=== PATIENT | male | born 1945 | race Caucasian/White ===

== ENCOUNTER → 2025-02-05 | Day surgery (SDC) | payer MEDICARE, OTHER ==
--- NOTE | 2025-01-29 14:21 | ELECTROCARDIOGRAPH REPORT ---
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 Donnell Lyles Measurements Intervals [place] Rate: 69 P: 0 MI: 0 QRS: -56 QRSD: 105 T: 74 QT: 431 QTc: 462 Interpretive Statements Atrial flutter or sinus rhythm with Baseline Artifact Left axis deviation Electronically Signed On 01-31-2025 11:59:[address] Donnell Lyles Please click the below link to view image of tracing.
[2025-01-29 14:25] LABS: MEAN PLATELET VOLUME 7.9 FL (7.4-10.4); PRE OP HEMATOCRIT 45.4 % (42.0-52.0); PRE OP HEMOGLOBIN 15.3 g/dL (14.0-17.9); PRE OP PLATELET COUNT 225 X10'3 (140-440); PRE OP WHITE BLOOD COUNT 7.8 10'3 (4.8-10.8); RED CELL DISTRIBUTION WIDTH 13.7 % (11.5-14.5)
[2025-01-29 14:53] LABS: CREATININE 1.30 MG/DL (0.60-1.10); PRE OP ANION GAP 6 (8-16); PRE OP AST 22 U/L (10-37); PRE OP BILIRUB, TOTAL 0.8 MG/DL (0.0-1.0); PRE OP GLUCOSE 98 MG/DL (70-104); PRE OP POTASSIUM 4.1 MMOL/L (3.4-5.1); PRE OP SODIUM 137 MMOL/L (135-145); TOTAL CARBON DIOXIDE 27.8 MMOL/L (24-32); eGFR 53 ML/MIN
[2025-01-29 15:21] LABS: PRE OP ALT 16 U/L (30-65)
[2025-02-05] VITALS (19 sets, daily range): BP systolic 126–162; BP diastolic 77–103; PULSE 71–117; RESP 9–16; TEMP 97.4; O2SAT 95–99
[~2025-02-05] VITALS: Ht 172.7 cm; Wt 64.1 kg
[~2025-02-05] MED LIST: BUPIVAcaine 2.5mg/ml inj 50ml vial (contains preservative) ONE; BUPIVAcaine/PF 2.5mg/ml (0.25%) 10ml vial ONE; CARB1TAB36 PO; CEPH250T PO; HYDROcodone/acetaminophen 5mg/325mg tablet PO PRN; HYDROmorphone/PF 0.2 MG/ML SYRINGE IV PRN; LIDOcaine 1% 30ml preserv. free vial ONE; LIDOcaine 2% (20mg/ml) 5ml vial ONE; PROGEST PO; SELE5TAB5 PO; TESTOSTERONE PO; [UNRECOGNIZED DRUG - OTHER]; [UNRECOGNIZED DRUG - OTHER] PO; acetaminophen 1,000mg/100ml IV 100 ML IV PRN; dexamethasone sod phosphate 4mg/ml inj. ONE; ePHEDrine 50MG/ML INJ. ONE; fentaNYL /PF 50mcg/ml 5ml ampule ONE; glycopyrrolate 0.2mg/ml inj ONE; hydrALAZINE 20mg/ml inj. IV PRN; labetalol 20mg/4ml (5mg/ml) syringe IV PRN; midazolam 1 mg/ML 2ml injection ONE; morphine 4 MG/ML inj SYRINge IV PRN; ondansetron/PF 4mg/2ml inj IV PRN; ondansetron/PF 4mg/2ml inj ONE; propofol inj 20 ML IV ONE; ringers solution, lacted 1,000 ML IV SCH; rocuronium 10mg/ml inj IV ONE
[2025-02-05] MEDS: ceFAZolin 2gm/dext,iso 50mL 50 ML IV ONE (05:30)
[2025-02-05] MEDS: ringers solution, lacted 1,000 ML IV SCH (07:34)
[2025-02-05] MEDS: LIDOcaine 1% 30ml preserv. free vial IJ ONE (10:16)
--- NOTE | 2025-02-05 11:41 | OPERATIVE REPORT ---
Operative Report Providers to CC CC: MARS XIONG MD ~ Date of Procedure: Feb 05, 2025 Pre-Operative Diagnosis: Left inguinal hernia, umbilical hernia Post-Operative Diagnosis Left inguinal hernia 2 cm umbilical hernia Procedure Performed 2 cm umbilical hernia repair Robotic assisted, laparoscopic left inguinal hernia repair with mesh Surgeon: Mars Xiong MD FACS Jet Handler None Anesthesiologist: Jeff Lyles Type of Anesthesia: General Findings: 2 cm fascial defect at the level of the umbilicus [id number] indirect left inguinal hernia Evidence of previous right inguinal hernia repair Complications None Prosthetics\Implants used: Extra-large Dextile mesh-left Estimated Blood Loss: Minimal Specimen Removed: None Description of Procedure: Patient was brought to the operating room and identified by the nursing staff and the attending physician. Patient was placed supine and general anesthesia was induced. Patient's abdomen was prepped and draped in standard sterile fashion. Preoperative antibiotics were given. Supraumbilical incision was made to allow for standard Mckinney entry technique. During dissection, a fairly large hernia sac was encountered at the level of the umbilicus. This was mobilized away from the umbilical dermis down to the level of the fascia and excised. Hernia sac was discarded. The fascial edges were freshened on the 2 cm fascial defect which was used for Mckinney port placement. Laparoscope was inserted after insufflation. Bilateral, 8.5 mm robotic trochars were placed under laparoscopic guidance following administration of local anesthetic. The da Ryley robotic arm was docked to the patient and instruments placed intra-abdominally under laparoscopic visualization. The right hemipelvis was examined and showed no evidence of right inguinal hernia. There was, however, evidence of previous indirect hernia repair as mesh was visualized. An indirect inguinal hernia was identified on the left side. Hernia sac was moderate in size. A rent was created in the peritoneum from the median umbilical fold and carried out laterally towards the anterior superior iliac spine. Preperitoneal flap was created and carried down to the symphysis pubis. The retropubic space of [place] was developed and the bladder swept medially. Dissection was carried out laterally until an indirect hernia sac was identified. This was [id number] in size. Hernia sac was completely dissected away from the cord structures and reduced. The critical view of the myopectineal orifice was achieved. Dissection was carried out laterally to allow space for mesh deployment. An extra-large Dextile mesh and suture was passed intra-abdominally. Mesh was laid in the preperitoneal space covering both indirect, direct, and potential femoral and obturator hernias. Mesh laid without wrinkles or folds. 3 tacking sutures using 0 Ethibond were used to fix the mesh at the symphysis pubis, rectus abdominis, and just anterior to the anterior superior iliac spine. The peritoneal rent was then closed with running, 2/0, absorbable locking suture. [place] were retrieved. Abdomen was deflated and secondary trochars removed. Fascia at the umbilical port site was closed with a combination of 0 Ethibond and 0 Vicryl sutures, thus easily reapproximating the 2 cm umbilical hernia defect. Skin incisions were closed with 4-0 Monocryl sutures in a subcuticular fashion. Sterile dressings were applied. Patient was awakened and taken to the postanesthesia care unit in stable condition. Counts repoted as correct: Yes MARS XIONG MD Feb 05, 2025 11:41
== END | disposition home or self-care (01) ==
LOC: PAS 06:51
PROVIDERS: ATTEND Surgery
DX: K40.90 Unilateral inguinal hernia, without obstruction or gangrene, not specified as recurrent (principal); K42.9 Umbilical hernia without obstruction or gangrene; Z85.46 Personal history of malignant neoplasm of prostate; Z79.890 Hormone replacement therapy; Z79.899 Other long term (current) drug therapy; Z90.79 Acquired absence of other genital organ(s); Z98.890 Other specified postprocedural states
CPT/HCPCS: 36415; 49591; 49650; 80053; 82948; 85025; 93005; A4215; A4314; A4618; C1781; J1100; J2003; J2250; J2405; J2704; J2710; J3010; J3490; J7030; J7120; Z7506; Z7508; Z7512; Z7610